=== PATIENT | female | born 1955 | race Caucasian/White ===

== ENCOUNTER 2016-08-01 08:06 | Emergency (ER) | payer OTHER ==
[2016-08-01 08:11] VITALS: BP 145/74; PULSE 76; TEMP 98.1; BMI 34.5
[2016-08-01] MEDS ORDERED: KETOROLAC TROMETHAMINE 30 MG/1 ML VIAL IM ONE (08:54)
[2016-08-01 09:09] LABS: URINE APPEARANCE CLEAR; URINE BILIRUBIN NEGATIVE (NEGATIVE); URINE BLOOD NEGATIVE (NEGATIVE); URINE COLOR STRAW; URINE GLUCOSE (UA) NEGATIVE (NEGATIVE); URINE KETONE NEGATIVE (NEGATIVE); URINE LEUK ESTERASE NEGATIVE (NEGATIVE); URINE NITRITE NEGATIVE (NEGATIVE); URINE PROTEIN NEGATIVE (NEGATIVE); URINE UROBILINOGEN NEGATIVE E.U./dl (0.2-1.0)
--- NOTE | 2016-08-01 09:13 | PDOC ---
History of Present Illness - General Chief Complaint: Pain Stated Complaint: RT SIDE ABD PAIN, SOB Time Seen by Provider: 08/01/16 08:43 History Source: Patient - History of Present Illness Timing/Duration: reports: constant Abdominal Pain Onset Location: reports: suprapubic Past History - Past Medical History Allergies/Adverse Reactions: Allergies Allergy/AdvReac Type Severity Reaction Status Date / Time Penicillins Allergy Mild Hives Verified 08/01/16 08:11 Home Medications: Ambulatory Orders Amlodipine Besylate [Norvasc -] 5 mg PO DAILY 08/01/16 Aspirin [ASA -] 81 mg PO DAILY 08/01/16 Atenolol [Tenormin -] 75 mg PO DAILY 08/01/16 Atorvastatin Ca [Lipitor] 20 mg PO HS 08/01/16 Clopidogrel Bisulfate [Plavix -] 75 mg PO ASDIR 08/01/16 Esomeprazole Magnesium [Nexium 24Hr] 40 mg PO DAILY 08/01/16 Folic Acid 1 mg PO DAILY 08/01/16 Hydroxychloroquine Sulfate [Plaquenil] 200 mg PO BID 08/01/16 Ibuprofen [Motrin -] 800 mg PO Q6H #30 tablet 08/01/16 Metformin HCl 500 mg PO DAILY 08/01/16 Nitrofurantoin Monohyd/M-Cryst [Macrobid -] 100 mg PO BID #14 capsule 08/01/16 Olmesartan/Hydrochlorothiazide [Benicar Hct 20-12.5 mg Tablet] 1 each PO DAILY 08/01/16 HTN: Yes Other medical history: LUPUS - Surgical History Cholecystectomy: Yes - Psycho/Social/Smoking Cessation Hx Anxiety: No Suicidal Ideation: No Smoking Status: No Smoking History: Never smoked Number of Cigarettes Smoked Daily: 0 Hx Alcohol Use: Yes (social) Drug/Substance Use Hx: No Substance Use Type: None Review of Systems - Review of Systems Constitutional: No: Chills, Fever ABD/GI: No: Constipated, Diarrhea, Nausea, Vomiting : Yes: Hematuria. No: Flank Pain *Physical Exam - Vital Signs Last Vital Signs Temp Pulse Resp BP Pulse Ox 98.1 F 76 20 145/74 99 08/01/16 08:08 08/01/16 08:08 08/01/16 08:08 08/01/16 08:08 08/01/16 08:08 - Physical Exam General Appearance: Yes: Appropriately Dressed. No: Apparent Distress HEENT: positive: Normal Voice Neck: positive: Supple Respiratory/Chest: positive: Normal Breath Sounds. negative: Respiratory Distress Cardiovascular: positive: Regular Rate, S1, S2 Gastrointestinal/Abdominal: positive: Tender (minimal ttp over R lower chest/RUQ ), Soft Musculoskeletal: negative: CVA Tenderness Integumentary: positive: Dry, Warm Neurologic: positive: Fully Oriented, Alert, Normal Mood/Affect Heart Score/ECG Review - ECG Intrepretation Comment:: 08/01/16 10:25 Twelve-lead EKG was performed and reviewed by me. There is normal sinus rhythm with a normal rate. The axis is normal. The intervals are normal. There are no ST or T wave abnormalities. Impression: Normal twelve-lead EKG ED Treatment Course - LABORATORY CBC & Chemistry Diagram: 08/01/16 09:10 08/01/16 09:10 - RADIOLOGY Radiology Studies Ordered: Category Date Time Status CHEST X-RAY PORTABLE* [RAD] Stat Radiology 08/01/16 08:45 Ordered Medical Decision Making - Medical Decision Making 08/01/16 09:09 61 yo F, h/o lupus, HTN, recurrent UTI, s/p tanya, p/w suprapubic pain w/ hematuria since yesterday, similar to her utis. No flank pain, n/v/f/c. Pt does report some RUQ pain that started 4 days ago after she was bent over her kitchen island for > 1 hr as per pt. States pain worse w/ deep inspiration. No sob otherwise and no CP See exam Dysuria H/o recurrent uti No e/o pyelo -ua/cx pending RUQ pain Possibly MSK given HPI s/p tanya -pain control -labs/ekg r/o other pathology 08/01/16 09:12 08/01/16 10:25 Labs/ekg/cxr negative. RUQ pain improved w/ meds. Despite neg ua, will tx w/ abx given hx. No +ucx on record. Dc w/ pmd f/u 08/01/16 10:28 *DC/Admit/Observation/Transfer Diagnosis at time of Disposition: Hematuria, Right sided abdominal pain - Discharge Dispostion Disposition: HOME Condition at time of disposition: Improved - Prescriptions Prescriptions: Nitrofurantoin Monohyd/M-Cryst [Macrobid -] 100 mg PO BID #14 capsule Ibuprofen [Motrin -] 800 mg PO Q6H #30 tablet - Patient Instructions Printed Discharge Instructions: Urinary Tract Infection Additional Instructions: Take medications as directed and return for worsening of symptoms
[2016-08-01 09:34] LABS: BASOPHIL 1.2 % (0-2.0); EOSINOPHIL 4.8 % (0-4.5); MCHC 32.9 g/dl (32.0-36.0); MEAN CELL VOLUME 81.9 fl (80-96); MEAN PLT VOLUME 8.1 fl (7.5-11.1); NEUTROPHILS 70.3 % (42.8-82.8); PLATELET COUNT 285 K/MM3 (134-434); RDW 14.6 % (11.6-15.6); WHITE BLOOD COUNT 6.9 K/mm3 (4.0-10.0)
[2016-08-01 10:02] LABS: ALBUMIN 4.5 g/dl (3.4-5.0); ANION GAP 10 (8-16); CALCIUM 9.5 mg/dL (8.5-10.1); CO2 30 mmol/L (21-32); GLUCOSE,RANDOM 117 mg/dL (74-106)
[2016-08-01 10:10] LABS: ALK PHOS 110 U/L (45-117); BILIRUBIN,TOTAL 0.5 mg/dL (0.2-1.0); CREATININE 0.8 mg/dL (0.55-1.02); SGOT/AST 14 U/L (15-37); SGPT/ALT 28 U/L (12-78); TOT PROT 7.6 g/dl (6.4-8.2); TROPONIN I < 0.02 ng/ml (0.00-0.05)
--- NOTE | 2016-08-02 09:40 | EKG ---
Test Reason : Blood Pressure : / mmHG Vent. Rate : 074 BPM Atrial Rate : 074 BPM P-R Int : 176 ms QRS Dur : 090 ms QT Int : 406 ms P-R-T Axes : 031 -12 -04 degrees QTc Int : 450 ms POOR DATA QUALITY, INTERPRETATION MAY BE ADVERSELY AFFECTED NORMAL SINUS RHYTHM MINIMAL VOLTAGE CRITERIA FOR LVH, MAY BE NORMAL VARIANT NONSPECIFIC ST ABNORMALITY WHEN COMPARED WITH ECG OF 27-MAR-2011 17:20, NO SIGNIFICANT CHANGE WAS FOUND Confirmed by SHAHEEN ACPPS MD ([id number]) on 08/02/2016 9:40:04 AM Referred By: Confirmed By:SHAHEEN CAPPS MD
== END 2016-08-01 10:37 | disposition home or self-care (01) ==
LOC: JER 08:06
PROC: 3E0233Z Introduction of Anti-inflammatory into Muscle, Percutaneous Approach (ICD-10-PCS; principal; 2016-08-01)
DX: R31.9 Hematuria, unspecified (principal); I10 Essential (primary) hypertension; E11.9 Type 2 diabetes mellitus without complications; Z79.84 Long term (current) use of oral hypoglycemic drugs; M32.9 Systemic lupus erythematosus, unspecified
CPT/HCPCS: 36415; 71010-TC; 80053; 81003; 82550; 82553; 83690; 84484; 85025; 87086; 93005; 93010; 99283-25

== ENCOUNTER 2019-07-13 09:26 | Day surgery (SDC) | payer OTHER ==
[2019-07-12 12:54] VITALS: BMI 35.4
[2019-07-13 11:52] VITALS: TEMP 97.6
[2019-07-13 12:43] VITALS: BP 117/56; PULSE 62
--- NOTE | 2019-07-14 17:41 | PATH ---
Surgical Pathology Report Patient Name: JUANY FITCH [facility]. Rec. #: [id number] /Age/Gender: 1955 (Age: 64) / F Account: [id number] Location: ASU-ENDOSCOPY Taken: 07/13/2019 Received: 07/13/2019 Reported: 07/14/2019 Physicians: Franck Ji D.O. Specimen(s) Received A: BX RIGHT COLON B: BX TRASVERSE COLON C: BX DESCENDING COLON Clinical History Change in bowel habits Postoperative diagnosis: Change in bowel habits, hemorrhoids Final Diagnosis A. RIGHT COLON, BIOPSY: COLONIC MUCOSA WITH MILD CRYPT ARCHITECTURAL DISTORTION. No histologic evidence of INTRAEPITHELIAL LYMPHOCYTOSIS or thickening of subepithelial basement membrane. B. TRANSVERSE COLON, BIOPSY: COLONIC MUCOSA WITH MILD CRYPT ARCHITECTURAL DISTORTION. No histologic evidence of INTRAEPITHELIAL LYMPHOCYTOSIS or thickening of subepithelial basement membrane. C. DESCENDING COLON, BIOPSY: COLONIC MUCOSA WITH FOCAL EPITHELIAL EROSION, MILD ACUTE INFLAMMATION, STROMAL FIBROSIS, AND MILD CRYPT ARCHITECTURAL DISTORTION. SEE COMMENT. Comment: Although findings are nonspecific, the changes can be seen in ischemic colitis. Suggest clinical correlation. Electronically Signed Sofia Salguero M.D. Gross Description A. Received in formalin, labeled "right colon biopsy" are 3 thurman, irregular portions of soft tissue ranging from 0.1-0.3 cm. in greatest dimension. The specimens are submitted in toto in one cassette. B. Received in formalin, labeled "transverse colon biopsy" are 3 thurman, irregular portions of soft tissue averaging 0.2 cm. in greatest dimension. The specimens are submitted in toto in one cassette. C. Received in formalin, labeled "descending colon biopsy" are 3 thurman, irregular portions of soft tissue ranging from 0.2-0.4 cm. in greatest dimension. The specimens are submitted in toto in one cassette. DL/07/13/2019 saudi/07/13/2019
== END 2019-07-13 12:30 | disposition home or self-care (01) ==
LOC: JASU-ENDO 09:26
PROVIDERS: ATTEND Internal Medicine Gastroenterology
PROC: 0DBE8ZX Excision of Large Intestine, Via Natural or Artificial Opening Endoscopic, Diagnostic (ICD-10-PCS; principal; 2019-07-13 11:00)
DX: Z12.11 Encounter for screening for malignant neoplasm of colon (principal); K64.8 Other hemorrhoids; E11.9 Type 2 diabetes mellitus without complications; I10 Essential (primary) hypertension; Z79.84 Long term (current) use of oral hypoglycemic drugs
CPT/HCPCS: 82962; 88305-TC

== ENCOUNTER 2020-04-08 17:14 | Emergency (ER) | payer OTHER ==
--- NOTE | 2020-04-08 17:20 | PDOC ---
History of Present Illness - General Chief Complaint: Back Pain Stated Complaint: back pain Time Seen by Provider: 04/08/20 17:19 - History of Present Illness Initial Comments: 04/08/20 17:19 HPI: This is a 65 y/o female with a PMH of lupus, htn, hld, and cervical neuropathy presenting to the ED due to 5 days of thoracic back pain after going to a chiropractor. This is the second time she has been to the chiropractor in order to treat pre-existing cervical radiculopathy. During the last visit he had her lay down on her stomach and cracked her back by pressing his hands down on either side of her spine. She immediately experienced sharp pain in her back that radiated around the right side to her breast. This pain has persisted since then. She reports the pain is worse with deep breaths and movement. She denies any chest pain, N/V, weakness, or new numbness/tingling. ROS: GENERAL/CONSTITUTIONAL: No fever/chills, diaphoresis, or weakness. HEENT: No change in vision. CARDIOVASCULAR: No chest pain, palpitations RESPIRATORY: Shortness of breath due to the pain, No dyspnea with exertion GASTROINTESTINAL: No abdominal pain, nausea, vomiting, diarrhea or constipation. GENITOURINARY: No dysuria, frequency MUSCULOSKELETAL: Yes pain in right upper back radiating around to her right breast. Worse with movement. SKIN: No rash or hives NEUROLOGIC: No headache, vertigo, focal weakness, or change in strength/sensation. PMH: lupus, htn, hld, and cervical neuropathy Social Hx: Denied etoh, tobacco, drug use Meds: See nurse note Allergies: See nurse note PE: GENERAL: Awake, alert, and fully oriented, in no acute distress. Patient is appropriately conversational. No respiratory distress or use of accessory muscles. Patient appears uncomfortable in bed. HEENT: Normocephalic, atraumatic. PERRLA, EOMI NECK: Normal ROM and supple. No lymphadenopathy, JVD, or masses. CARDIOVASCULAR: Regular rate and rhythm, normal S1 and S2 PULMONARY: No respiratory distress. Breath sounds equal, clear to auscultation bilaterally. ABDOMEN: Soft, nontender BACK: No tenderness to palpation along cervical, thoracic, or lumbar spine. Right thoracic paraspinal tenderness. EXTREMITIES: Decreased ROM of right shoulder and arm due to pain. No edema or erythema. NEUROLOGICAL: Cranial nerves II through XII grossly intact. Normal speech, normal gait. Strength/ sensation intact in bilateral upper extremities SKIN: Warm, Dry, normal turgor, no rashes or lesions noted. Normal capillary refill. MDM: 04/08/20 17:37 This is a 65 y/o female with a PMH of lupus, htn, hld, and cervical neuropathy presenting to the ED due to 5 days of thoracic back pain after going to a chiropractor. - Had immediate pain after her back was cracked - Pain has worsened over the past few days - Deep breaths aggravate the pain - No spinal tenderness to palpation ddx: lumbar fx, rib fx, herniated disk, muscle spasm - Will order r. sided rib xray, thoracic xray - Will start with motrin and flexeril for pain control - Patient returned from XRAY still in pain - Will give 5mg percocet 04/08/20 19:10 Rib XR: One view of the chest and 4 views of the right ribs have been submitted. The chest imaging shows a prominent heart, unfolded aorta, normal ramirez and clear lung fu with some scarring or atelectasis in the mid and lower lung fu. The angles are sharp. The soft tissues are intact. There is a scoliosis with arthritic findings. A gross fracture is not seen. The right rib images show no sign of blastic or lytic changes and no sign of a gross fracture. A marker has not been placed with its specific pain. There are right upper quadrant clips. If symptoms persist or there is decreased range of motion then further imaging may be of help. Thoracic XR: AP and lateral views of the thoracic spine reveal slight rotation to the left with degenerative changes, intact paraspinal soft tissues and intact prevertebral soft tissues. There is normal thoracic kyphosis with degenerative changes and minimal wedging. There is a large heart, unfolded aorta and some atelectatic changes at the lung bases. If symptoms persist, further imaging and orthopedic consultation may be of help. Negative for acute fxs Stable for d/c home with return precautions Will d/c with percocet and valium Follow up as outpatient for possible MRI Will give ortho referral Past History - Medical History Allergies/Adverse Reactions: Allergies Allergy/AdvReac Type Severity Reaction Status Date / Time Penicillins Allergy Mild Hives Verified 04/08/20 17:35 Home Medications: Ambulatory Orders Amlodipine Besylate [Norvasc -] 5 mg PO DAILY 08/01/16 Aspirin [ASA -] 162 mg PO DAILY 08/01/16 Atenolol [Tenormin -] 75 mg PO HS 08/01/16 Atorvastatin Ca [Lipitor] 20 mg PO HS 08/01/16 Folic Acid 1 mg PO DAILY 08/01/16 Hydroxychloroquine Sulfate [Plaquenil] 200 mg PO DAILY 08/01/16 metFORMIN HCL [Metformin HCl] 500 mg PO DAILY 08/01/16 Hydrochlorothiazide [Hctz -] 25 mg PO DAILY 07/12/19 Olmesartan Medoxomil [Benicar (Nf)] 20 mg PO DAILY 07/12/19 Diazepam [Valium] 5 mg PO Q8H PRN #15 tablet MDD 4 04/08/20 Oxycodone HCl/Acetaminophen [Percocet 5-325 mg Tablet] 1 tab PO Q4H PRN #15 tablet MDD 6 04/08/20 Anemia: No Asthma: No Cancer: No Cardiac Disorders: Yes (CAD) COPD: No CHF: No Dementia: No Diabetes: Yes (NIDDM) GI Disorders: No Disorders: No HTN: Yes Hypercholesterolemia: Yes Liver Disease: No Seizures: No Thyroid Disease: No - Surgical History Abdominal Surgery: Yes Appendectomy: No Cardiac Surgery: Yes (STENT X 1) Cholecystectomy: Yes (LAPAROSCOPIC) - Psycho-Social/Smoking History Smoking Status: No Smoking History: Never smoked Have you smoked in the past 12 months: No Number of Cigarettes Smoked Daily: 0 Discharge - Discharge Information Problems reviewed: Yes Clinical Impression/Diagnosis: Back pain Qualifiers: Back pain location: thoracic back pain Chronicity: acute Back pain laterality: right Qualified Code(s): M54.6 - Pain in thoracic spine Condition: Stable Disposition: HOME - Additional Discharge Information Prescriptions: Oxycodone HCl/Acetaminophen [Percocet 5-325 mg Tablet] 1 tab PO Q4H PRN #15 tablet MDD 6 PRN Reason: Pain Diazepam [Valium] 5 mg PO Q8H PRN #15 tablet MDD 4 PRN Reason: Pain - Follow up/Referral Referrals: Samy Najera DO [Staff Physician] - Hayden Muhammad MD [Staff Physician] - Ermias Rojas MD [Staff Physician] - - Patient Discharge Instructions Patient Printed Discharge Instructions: DI for Thoracic Back Pain Additional Instructions: You came to the ED because of mid back pain radiating around your side We did an Xray of your ribs and thoracic spine which were negative for acute fractures A prescription for Valium has been sent to your pharmacy. Please follow the instructions on the bottle. Please follow up with your PCP in order to do an outpatient MRI if the pain persists. We are also giving you referrals for orthopedists. Home Care and Follow Up: - You may use over the counter medications as needed for pain at home. 650mg acetaminophen (Tylenol) or 600mg ibuprofen (Motrin or Advil) can be used every 6-8 hours. If needed for continued pain, these medications may be alternated every 3-4 hours. For example, if you take ibuprofen at 9am, you may take acetaminophen at noon, ibuprofen at 3pm, etc. - It is strongly recommended that you take ibuprofen with food to help prevent stomach irritation. If you are taking it for more than a day or two, you may consider taking an acid medication such as Pepcid, available over the counter, to protect your stomach. This should be taken first thing in the morning 30-60 minutes before any food or medications. - You may buy a numbing patch that contains lidocaine (the patch is 4% lidoc carole) that can be placed over the areas of greatest pain. The lidocaine patch may be placed for 12 hours then removed for 12 hours. - Try using an ice pack for 20 minutes every hour or a heating pad for additional pain control. These should NOT be used over the lidocaine patch, but you may place them over the areas of pain while the patch is off. - Do not stop moving around. As much as you can tolerate, continue to do light exercise and stretching exercises. Increase your activity level as much as you can tolerate daily. - If your pain does not improve over the next week, you have been referred to your PCP and Ortho for follow up. Seek immediate medical care if you have significant worsening of your symptoms, new numbness/tingling or weakness, or increased pain. - Post Discharge Activity
[2020-04-08 17:43] VITALS: BP 174/73; PULSE 86; TEMP 97.9; BMI 36.3
[2020-04-08] MEDS ORDERED: IBUPROFEN 600 MG TABLET (FP) PO ONE ×2 (17:45→17:56)
[2020-04-08] MEDS ORDERED: LIDOCAINE 5% TOPICAL PATCH TP ONE (17:46)
[2020-04-08] MEDS ORDERED: CYCLOBENZAPRINE HCL 10 MG TABLET (FP) PO ONE (17:54)
[2020-04-08] MEDS ORDERED: CYCLOBENZAPRINE HCL 10 MG TABLET (FP) ONE (17:56)
[2020-04-08] MEDS ORDERED: LIDOCAINE 5% TOPICAL PATCH ONE (17:57)
--- NOTE | 2020-04-08 21:18 | PDOC ---
Attending Attestation - Resident Resident Name: JocelynLala - ED Attending Attestation I have performed the following: I have examined & evaluated the patient, The case was reviewed & discussed with the resident, I agree w/resident's findings & plan, Exceptions are as noted - HPI HPI: 04/08/20 21:12 65 yo F PMH of lupus, htn, hld, and cervical neuropathy presenting to the ED due to 5 days of thoracic back pain after going to a chiropractor. pt states she was seeing the chiropractor for upper neck pain. he was doing a maniupulation suddently felt pain in her thoracic back region. happened 5 days ago. no new numbness or new tinglingsince the manipulation. no f/c no bowel or bladder incontinence. no h/o back surgery. - Physicial Exam PE: 04/08/20 21:15 awake alert lungs clear bilat heart rrr no mrg abd soft nt nd ext wwp. no midline spinal tenderness. paraspinal tenderness thoracic region to right, palp muscle spasm. nuero 5/5 all four ext. sensation intact bilat upper and lower ext. med/ ulnar radial n intact. - Medical Decision Making 04/08/20 21:16 65 h/o lupus, htn here with c/o back pain after chiropractor. differential stenosis, herniated disc and nerve compression m spasm. fx. plan thoracic spine xray, rib zxray. pain control with muscle relaxers, anti inflammatory. xray negative for acute fracture. pt still in pain given percocet. will dc home. told to return for worsening sxs, or weakness. currently normal nuero exam. will possible require outpt mri if not inproving or worsening sxs. dc home with rx for valium and percocet. Discharge - Discharge Information Problems reviewed: Yes Clinical Impression/Diagnosis: Back pain Qualifiers: Back pain location: thoracic back pain Chronicity: acute Back pain laterality: right Qualified Code(s): M54.6 - Pain in thoracic spine Condition: Stable Disposition: HOME - Additional Discharge Information Prescriptions: Oxycodone HCl/Acetaminophen [Percocet 5-325 mg Tablet] 1 tab PO Q4H PRN #15 tablet MDD 6 PRN Reason: Pain Diazepam [Valium] 5 mg PO Q8H PRN #15 tablet MDD 4 PRN Reason: Pain - Follow up/Referral Referrals: Ermias Rojas MD [Staff Physician] - Hayden Muhammad MD [Staff Physician] - Samy Najera DO [Staff Physician] - - Patient Discharge Instructions Patient Printed Discharge Instructions: DI for Thoracic Back Pain Additional Instructions: You came to the ED because of mid back pain radiating around your side We did an Xray of your ribs and thoracic spine which were negative for acute fractures A prescription for Valium has been sent to your pharmacy. Please follow the instructions on the bottle. Please follow up with your PCP in order to do an outpatient MRI if the pain persists. We are also giving you referrals for orthopedists. Home Care and Follow Up: - You may use over the counter medications as needed for pain at home. 650mg acetaminophen (Tylenol) or 600mg ibuprofen (Motrin or Advil) can be used every 6-8 hours. If needed for continued pain, these medications may be alternated every 3-4 hours. For example, if you take ibuprofen at 9am, you may take acetaminophen at noon, ibuprofen at 3pm, etc. - It is strongly recommended that you take ibuprofen with food to help prevent stomach irritation. If you are taking it for more than a day or two, you may consider taking an acid medication such as Pepcid, available over the counter, to protect your stomach. This should be taken first thing in the morning 30-60 minutes before any food or medications. - You may buy a numbing patch that contains lidocaine (the patch is 4% lidocaine) that can be placed over the areas of greatest pain. The lidocaine patch may be placed for 12 hours then removed for 12 hours. - Try using an ice pack for 20 minutes every hour or a heating pad for additional pain control. These should NOT be used over the lidocaine patch, but you may place them over the areas of pain while the patch is off. - Do not stop moving around. As much as you can tolerate, continue to do light e xercise and stretching exercises. Increase your activity level as much as you can tolerate daily. - If your pain does not improve over the next week, you have been referred to your PCP and Ortho for follow up. Seek immediate medical care if you have significant worsening of your symptoms, new numbness/tingling or weakness, or increased pain. - Post Discharge Activity
[2020-04-08] MEDS ORDERED: LIDOCAINE PATCH REMOVAL MC SCH (22:00)
== END 2020-04-08 19:56 | disposition home or self-care (01) ==
LOC: FER 17:14
DX: M54.6 Pain in thoracic spine (principal)
CPT/HCPCS: 71101-TC-RT-FY; 72070-TC-FY; 99284-25

== ENCOUNTER 2023-01-18 09:12 | Emergency (ER) | payer OTHER ==
[2023-01-18 09:33] VITALS: BP 137/59; PULSE 66; RESP 18; TEMP 98.6; BMI 33.6
[2023-01-18] MEDS ORDERED: ACETAMINOPHEN WITH CODEINE 300MG/30MG TABLET PO ONE (09:42)
[2023-01-18] MEDS ORDERED: ACETAMINOPHEN WITH CODEINE 300MG/30MG TABLET ONE (09:58)
== END 2023-01-18 10:45 | disposition home or self-care (01) ==
LOC: FER 09:12
DX: S82.035A Nondisplaced transverse fracture of left patella, initial encounter for closed fracture (principal); S92.425A Nondisplaced fracture of distal phalanx of left great toe, initial encounter for closed fracture; W01.198A Fall on same level from slipping, tripping and stumbling with subsequent striking against other object, initial encounter; Y92.9 Unspecified place or not applicable
CPT/HCPCS: 73560-TC-LT-FY; 73590-TC-LT-FY; 73630-TC-LT; 99284-25